=== PATIENT | male | born 1975 | race Caucasian/White ===

== ENCOUNTER 2016-11-30 21:49 | Inpatient (IN) | payer OTHER ==
--- NOTE | ~2016-11-30 | PN ---
Unit #: [id number] #: [id number] Patient: CIARAN VIGIL [id number] [facility] [address] [place] [address] [id number] MR#: [id number] NAME: CIARAN VIGIL ROOM: 31 Age: 41 Sex: M Admission Date: 12/01/2016 : 1975 Attending Physician: Kevan Weiss M.D. Admitting Physician: Kevan Weiss M.D. Primary Care Physician: Primary Care Physician Lala JACKSON PROGRESS NOTES DATE 12/02/2016 DISCUSSION Mr. Vigil is a 41-year-old white male who was seen today and chart was reviewed and case was discussed with the staff. He has been anxious, withdrawn and seclusive to himself. Meanwhile, he has been cooperative with treatment recommendations and has been taking medications and tolerating them fairly well with no reported side effects. MENTAL STATUS EXAMINATION Middle-aged white male who was casually dressed with fair personal hygiene and appears to be in no acute distress or discomfort. He was awake and alert on interaction with intact orientation. His mood was anxious with congruent affect. He denies any suicidal or homicidal ideation. His insight and judgement remains slightly impaired. TREATMENT PLAN 1. Will continue his current medications and treatment protocol. Will monitor his response to the medications and make further adjustments as needed. 2. Will continue to follow up. Dictated by... Kevan Weiss M.D. IAA/syed TD: 12/02/2016 17:41 JOB #: [id number] Unit #: [id number] #: [id number] Patient: CIARAN VIGIL PROGRESS NOTES Page 1 of 1 X Kevan Weiss MD PROGRESS NOTE
--- NOTE | ~2016-11-30 | PA ---
Unit #: [id number] #: [id number] Patient: CIARAN VIGIL [id number] [facility] [address] [place] [address] [id number] I MR#: [id number] NAME: CIARAN VIGIL ROOM: P131 Age: 41 Sex: M Admission Date: 12/01/2016 : 1975 Date of Assessment: 12/01/2016 Attending Physician: Kevan Weiss M.D. Admitting Physician: Kevan Weiss M.D. Primary Care Physician: Primary Care Physician No PSYCHIATRIC ASSESSMENT DATE OF SERVICE 12/01/2016. IDENTIFYING DATA Mr. Vigil is a 41-year-old single white male, who is a resident of [place], [place] and was self-referred to the hospital on a voluntary basis. CHIEF COMPLAINT "Increasing paranoid thoughts of people watching me." HISTORY OF PRESENT ILLNESS Mr. Vigil is a 41-year-old white male, who was brought to the hospital accompanied by his sister and upon presentation, the patient reports that he has been having increasing in his paranoid thoughts, particularly of people watching him and reports that he does not do well being around a lot of people and recently reports that he seems to be having a difficult time dealing with the loss of his mother, who 9 days ago and since then, the patient has been dealing with loss and reports he has been thinking more about taking himself out of here before dealing with his anxiety and reports that he has had history of drinking, which help him deal with stress. He does report increasing depression, anxiety, irritability, restlessness, feelings of hopelessness and helplessness, and paranoid ideations and suicidal ideations and as such, he was seen to be danger to self and others and therefore, recommendation for inpatient level of care for safety and stabilization was made and the patient was transferred to us. SUBSTANCE ABUSE HISTORY The patient reports history of alcohol, cannabis, cocaine, acid, and amphetamine abuse, though he reports that he has not had any drugs in the last several years with the exception of cannabis, which he reports that last use was 5 days ago. PAST PSYCHIATRIC HISTORY The patient has had outpatient treatment in the past. Review of the medical records indicate that currently he is not seeing a psychiatrist, and is not taking any psychotropic medications. PAST MEDICAL HISTORY The patient's medical history is significant for hypertension and coronary artery disease. Unit #: [id number] #: [id number] Patient: CIARAN VIGIL ALLERGIES No known medication allergies. PERSONAL AND SOCIAL HISTORY A 41-year-old white male, who reports that he is single and unemployed and lives by himself and has poor social support system. MENTAL STATUS EXAMINATION Middle-aged white male, who was casually dressed with fair personal hygiene, appears to be in no acute distress or discomfort. He was awake and alert on interaction with intact orientation. His mood was anxious and depressed with a congruent affect. His speech was slow and restricted in content. His thought processes were disorganized. He reports having suicidal ideations with bizarre, paranoid ideations, and delusional behavior. His insight and judgment remain significantly impaired. DIAGNOSTIC IMPRESSION Psychiatric: Major depressive disorder, recurrent, moderate, with psychosis. Medical: Hypertension, coronary artery disease. Stressors: Moderate psychosocial stressors. TREATMENT PLAN 1. The patient has presented with history of mood disorder and psychosis and has been decompensating and will need inpatient hospitalization for safety and stabilization. We will start him back on his home medications. We will adjust the medications and monitor response. 2. Supportive therapy was provided to the patient. 3. Safe, structured, and nourishing environment will be provided. ESTIMATED LENGTH OF STAY 5 to 7 days. ABILITY TO HELP SELF Limited. WILLINGNESS TO HELP SELF The patient appears to be willing to help self STRENGTHS 1. Communicative. 2. Cooperative. PROBLEMS 1. Chronic dysphoric symptoms. 2. Poor social support system. DISCHARGE CRITERIA This will be contingent upon the patient's ability to show resolution of his depression and anxiety and psychosis and his ability to stay safe to himself, particularly after discharge from the hospital. Dictated by... Sweetie Milan/nneka Unit #: [id number] #: [id number] Patient: CIARAN VIGIL TD: 12/01/2016 06:43 JOB #: [id number] PSYCHIATRIC ASSESSMENT Page 1 of 1 X Kevan Weiss MD PSYCHIATRIC ASSESSMENT
--- NOTE | ~2016-11-30 | PN ---
Unit #: [id number] #: [id number] Patient: CIARAN VIGIL [id number] [facility] [address] [place] [address] [id number] I MR#: [id number] NAME: CIARAN VIGIL ROOM: P131 Age: 41 Sex: M Admission Date: 12/01/2016 : 1975 Attending Physician: Kevan Weiss M.D. Admitting Physician: Kevan Weiss M.D. Primary Care Physician: Primary Care Physician Lala VALERIO NOTES DATE 12/03/2016 DISCUSSION Mr. Vigil is a 41-year-old white male who was seen today and chart was reviewed and case was discussed with the staff. He has been anxious, withdrawn and rather seclusive to himself. He has been cooperative with treatment recommendations and has been taking medications and tolerating them fairly well with no reported side effects. MENTAL STATUS EXAMINATION Middle-aged white male who was casually dressed with fair personal hygiene and appears to be in no acute distress or discomfort. He was awake and alert on interaction with intact orientation. His mood was anxious with congruent affect. He denies any suicidal or homicidal ideation. His insight and judgment remains slightly impaired. TREATMENT PLAN 1. We will continue his current medications and treatment protocol. Will monitor his response to the medications and make further adjustments as needed. 2. We will continue to follow up. Dictated by... Kevan Weiss M.D. IAA/dolores TD: 12/04/2016 14:54 JOB #: [id number] Unit #: [id number] #: [id number] Patient: CIARAN VIGIL CLEMENCIASIDDHARTH PROGRESS NOTES Page 1 of 1 X Kevan Weiss MD PROGRESS NOTE
--- NOTE | ~2016-11-30 | TN ---
Unit #: [id number] #: [id number] Patient: CIARAN VIGIL [id number] [facility] [address] [place] [address] [id number] I MR#: [id number] NAME: CIARAN VIGIL ROOM: P131 Age: 41 Sex: M Admission Date: 12/01/2016 : 1975 Discharge Date: 12/06/2016 Attending Physician: Kevan Weiss M.D. Primary Care Physician: Primary Care Physician No LOC TRANSFER NOTE DATE OF SERVICE 12/07/2016. HISTORY OF PRESENT ILLNESS Mr. Vigil is a 41-year-old single white male, who is a resident of [place], [place], and was stepped down to the outpatient treatment program from the adult inpatient chemical dependency and psychiatric unit, where he was hospitalized under my care from 12/01/2016 to 12/06/2016 and was initially brought to the hospital with increasing paranoia and having thoughts of people watching him and that he did not feel well being around a lot of people and recently stated that he has been having a difficult time dealing with the loss of his mother, she 9 years ago and since then the patient has been dealing with her loss and reports that he has been thinking about taking himself out before dealing with the anxiety and reported history of drinking to help with his mood. He was stabilized on a combination of Risperdal and Celexa and was medically detoxed and was stepped down to the outpatient treatment program. SUBSTANCE ABUSE HISTORY The patient reports history of alcohol, cannabis, cocaine, acid, and amphetamine abuse, and alcohol appears to be his drug of choice. He reports that he has been drinking several beers on a daily basis. PAST PSYCHIATRIC HISTORY The patient has had a history of outpatient chemical dependency treatments in the past, though currently he is not active in any treatment program, is not seeing a psychiatrist, and is not taking any psychotropic medications. PAST MEDICAL HISTORY The patient's medical history is significant for hypertension and coronary artery disease. ALLERGIES No known medication allergies. PERSONAL AND SOCIAL HISTORY A 41-year-old white male, who reports that he lives at home by himself and has fairly decent social support system. MENTAL STATUS EXAMINATION Middle-aged white male, who was casually dressed with fair personal hygiene, appears to be in no acute distress or discomfort. He was awake Unit #: [id number] #: [id number] Patient: CIARAN VIGIL and alert on interaction with intact orientation. His mood was anxious and depressed with a congruent affect. His speech was slow and goal directed. He denies any suicidal or homicidal ideations and also denies any auditory or visual hallucinations. His insight and judgment remain slightly impaired. DIAGNOSTIC IMPRESSION Psychiatric: Major depressive disorder, recurrent, moderate, without psychotic features and alcohol dependence, moderate. Medical: None. [id number] psychosocial stressors. TREATMENT PLAN 1. The patient has presented with a history of mood disorder and substance abuse. We will recommend enrolling him into the outpatient treatment program and maintaining him on his current medications. We will monitor his response and make further adjustments as needed. 2. Supportive therapy was provided to the patient. 3. Safe, structured, and nourishing environment will be provided. ESTIMATED LENGTH OF STAY 14 to 21 days. ABILITY TO HELP SELF Limited. WILLINGNESS TO HELP SELF The patient appears to be willing to help self. STRENGTHS 1. Communicative. 2. Cooperative. PROBLEMS 1. Chronic chemical dependency. 2. Chronic dysphoric symptoms. 3. Poor social support system. DISCHARGE CRITERIA This will be contingent upon the patient's ability to show resolution of his depression and anxiety and his ability to stay safe to himself, particularly after discharge from the program. Dictated by... Sweetie Milan/nneka TD: 12/08/2016 14:20 JOB #: [id number] Unit #: [id number] #: [id number] Patient: CIARAN VIGIL LOC TRANSFER NOTE Page 1 of 1 X Kevan Weiss MD X LOC TRANSFER NOTE
--- NOTE | ~2016-11-30 | PN ---
Unit #: [id number] #: [id number] Patient: CIARAN VIGIL [id number] [facility] [address] [place] [address] [id number] MR#: [id number] NAME: CIARAN VIGIL ROOM: 31 Age: 41 Sex: M Admission Date: 12/01/2016 : 1975 Attending Physician: Kevan Weiss M.D. Admitting Physician: Kevan Weiss M.D. Primary Care Physician: Primary Care Physician Lala VALERIO NOTES DATE December 04, 2016 DISCUSSION Mr. Vigil is a 41-year-old white male, who was seen today and chart was reviewed and the case was discussed with the staff. He has been anxious, withdrawn, and rather seclusive to himself. He has been cooperative with the treatment recommendations and he has been taking the medications and tolerating them fairly well with no reported side effects. MENTAL STATUS EXAMINATION Middle-aged white male, who was casually dressed with fair personal hygiene and appears to be in no acute distress or discomfort. He was awake and alert with intact orientation. His mood is anxious with a congruent affect. His speech is slow and goal-directed. He denies any suicidal or homicidal ideations, and also denies any auditory or visual hallucinations. His insight and judgment remain slightly impaired. TREATMENT PLAN 1. We will continue him on his current medications and treatment protocol, and will monitor his response to the medications, and make further adjustments as needed. 2. We will continue to followup. Dictated by... Sweetie Milan/gypsy TD: 12/05/2016 11:12 JOB #: [id number] Unit #: [id number] #: [id number] Patient: CIARAN VIGIL PROGRESS NOTES Page 1 of 1 X Kevan Weiss MD PROGRESS NOTE
--- NOTE | ~2016-11-30 | HP ---
Unit #: [id number] #: [id number] Patient: CESAR VIGIL [id number] [facility] [address] [place] [address] [id number] I MR#: [id number] NAME: CESAR VIGIL ROOM: P131 Age: 41 Sex: M Admission Date: 12/01/2016 : 1975 Attending Physician: Kevan Weiss M.D. Admitting Physician: Kevan Weiss M.D. Primary Care Physician: Primary Care Physician No HISTORY AND PHYSICAL HISTORY OF PRESENT ILLNESS Cesar is a 41 year old admitted to [address] [place] [address] reporting paranoid thoughts. PAST MEDICAL HISTORY 1. Coronary artery disease. a. Angioplasty with stents. 2. High blood pressure. 3. Hyperlipidemia. 4. History of poly-illicit substance abuse to include marijuana, cocaine and amphetamines. PAST SURGICAL HISTORY Nothing reported. ALLERGIES No known drug allergies. SOCIAL HISTORY Smokes less than 1/2 pack per day. Drinks a 12 pack of beer on a daily basis. Admits to using marijuana daily and has a history of other illicit substance abuse to include cocaine and amphetamines. FAMILY HISTORY Medically noncontributory. REVIEW OF SYSTEMS CONSTITUTIONAL: No fever or chills. HEENT: Denies any sore throat, ear pain or runny nose. CARDIOVASCULAR: Denies chest pain, irregular heart rhythm or palpitations. CHEST: Denies shortness of breath or cough. No hemoptysis. GASTROINTESTINAL: Denies nausea, vomiting, diarrhea or chronic constipation. ENDOCRINE: Denies history of increased thirst or urination. No recent significant weight loss or gain. GENITOURINARY: Denies dysuria, frequency, or hematuria. SKIN: Denies any rashes. HEMATOLOGIC: Denies history of increased bleeding or bruising. MUSCULOSKELETAL: Denies any hot, swollen joints. No generalized muscle pain. NEUROLOGIC: Denies problems with vision or speech. No frequent, severe headaches. No numbness, tingling or weakness in any extremities. Denies loss of bladder or bowel control. Unit #: [id number] #: [id number] Patient: CESAR VIGIL CURRENT MEDICATIONS 1. Aspirin 81 mg daily. 2. Zestril 5 mg daily. 3. Imdur ER 30 mg daily. 4. Lipitor 80 mg daily. 5. Celexa 20 mg q.h.s. 6. Coreg 3.125 mg b.i.d. 7. Sublingual nitroglycerin p.r.n. 8. Milk of Magnesia p.r.n. 9. Maalox p.r.n. 10. Tylenol p.r.n. 11. Risperdal 0.5 mg b.i.d. PHYSICAL EXAMINATION GENERAL: Alert, thin, in no apparent distress. VITAL SIGNS: Blood pressure 136/80, heart rate 56, respirations 16, temperature 98.6. WEIGHT: 146. HEIGHT: 5 feet 10 inches. SKIN: Warm and dry without rash or lesion. HEENT: Normocephalic. TMs not viewed. Oral and nasal passages clear. Conjunctivae clear. PERRLA. EOMs intact. NECK: Supple without lymphadenopathy or thyromegaly. HEART: Regular rate and rhythm without murmur. LUNGS: Clear. ABDOMEN: Soft, nontender. : Not done. EXTREMITIES: No evidence of cyanosis, clubbing or edema. Moves all without focal deficit. NEUROLOGICAL: Grossly within normal limits. Cranial Nerves: II: Visual bhatia are intact. III, IV AND : Extraocular movements are intact. Pupils are equal, round and reactive to light. V: Facial sensation is grossly normal. VII: Facial movements and expression are normal. VIII: Auditory acuity grossly intact. IX, X: Uvula is midline. Phonation is normal. XI: Patient shrugs shoulders and turns head normally. XII: Tongue protrudes in the midline. Sensory and Motor Function: Sensory and motor sensation is grossly normal. Motor: moves all extremities well. Coordination: Gait is normal. Deep Tendon Reflexes: Intact. IMPRESSION Psychiatric admission. RECOMMENDATIONS PSYCHIATRIC: Per psychiatrist. MEDICAL: See no contraindications to participate in facility's activities. MEDICAL PROGNOSIS Good. MEDICAL CONDITION Stable. Dictated by... Unit #: [id number] #: [id number] Patient: VIGILCESAR P.AVirginia. for Sweetie Gann/syed TD: 12/01/2016 16:35 JOB #: [id number] HISTORY AND PHYSICAL Page 1 of 1 X Rachel Fay HISTORY AND PHYSICAL
--- NOTE | ~2016-11-30 | DS ---
Unit #: [id number] #: [id number] [facility] [id number] [facility] [address] [place] [address] [id number] I MR#: [id number] NAME: CIARAN VIGIL ROOM: P131 Age: 41 Sex: M Admission Date: 12/01/2016 : 1975 Discharge Date: 12/06/2016 Attending Physician: Kevan Weiss M.D. Primary Care Physician: Primary Care Physician No DISCHARGE SUMMARY IDENTIFYING DATA Mr. Vigil is a 41-year-old single white male, who is a resident of [place], [place] and was self-referred to the hospital on a voluntary basis. DISCHARGE DIAGNOSES Psychiatric: Major depressive disorder, recurrent, moderate, with psychosis. Medical: Hypertension, coronary artery disease. Stressors: Moderate psychosocial stressors. HISTORY OF PRESENT ILLNESS Please see initial psychiatric evaluation for details. PAST PSYCHIATRIC HISTORY Please see initial psychiatric evaluation for details. PAST MEDICAL HISTORY Please see initial psychiatric evaluation for details. HOSPITAL COURSE The patient was admitted to the adult psychiatric unit at [facility] aaliyah Pride and was oriented to the hospital environment. Routine p.r.n. medications were initiated, and he was started back on his home medications and Risperdal and Celexa were initiated to help with mood and psychosis, and he was closely monitored. He was taking the medications regularly and was tolerating them fairly well and was able to show a decent therapeutic response with improvement in depression and anxiety and as such, it was decided that he will be discharged home. We will continue treatment on an outpatient basis. DISCHARGE MEDICATIONS Risperdal 0.5 mg b.i.d. for psychosis; Celexa 20 mg a day for depression; Lipitor 80 mg at bedtime for dyslipidemia; Imdur ER 30 mg a day for hypertension; Coreg 3.125 mg b.i.d. for coronary artery disease; Zestril 5 mg a day for hypertension; aspirin 81 mg a day for coronary artery disease. DISCHARGE CONDITION Stable. PROGNOSIS Fair. Unit #: [id number] #: [id number] Patient: CIARAN VIGIL Dictated by... Kevan Weiss M.D. IAA/modl TD: 12/06/2016 07:31 JOB #: [id number] DISCHARGE SUMMARY Page 1 of 1 X Kevan Weiss MD DISCHARGE SUMMARY
--- NOTE | ~2016-11-30 | PN ---
Unit #: [id number] #: [id number] Patient: CIARAN VIGIL [id number] [facility] [address] [place] [address] [id number] MR#: [id number] NAME: CIARAN VIGIL ROOM: 31 Age: 41 Sex: M Admission Date: 12/01/2016 : 1975 Attending Physician: Kevan Weiss M.D. Admitting Physician: Kevan Weiss M.D. Primary Care Physician: Primary Care Physician Lala VALERIO NOTES DATE December 05, 2016 DISCUSSION Mr. Vigil is a 41-year-old white male, who was seen today and chart was reviewed and the case was discussed with the staff. He has been anxious, withdrawn, and rather seclusive to himself. Meanwhile, he has been cooperative with the treatment recommendations, and he has been taking the medications and tolerating them fairly well with no reported side effects. MENTAL STATUS EXAMINATION Young white male, who was casually dressed with fair personal hygiene and appears to be in no acute distress or discomfort. He was awake and alert on interaction with intact orientation. His mood is anxious with a congruent affect. He denies any suicidal or homicidal ideations, and also denies any auditory or visual hallucinations. His insight and judgment remain slightly impaired. TREATMENT PLAN 1. We will continue him on his current medications and treatment protocol, and will monitor his response to the medications, and make further adjustments as needed. 2. We will continue to followup. Dictated by... Sweetie Milan/gypsy TD: 12/06/2016 05:41 JOB #: [id number] Unit #: [id number] #: [id number] Patient: CIARAN VIGIL PROGRESS NOTES Page 1 of 1 X Kevan Weiss MD PROGRESS NOTE
[2016-12-01 09:33] LABS: BASOPHIL# 0.1 X10e3 (0-0.3); BASOPHIL% 0.8 % (0-2.5); EOSINOPHIL# 0.3 X10e3 (0-0.7); EOSINOPHIL% 2.4 % (0.0-7.0); HEMATOCRIT 44.1 % (38.0-50.0); HEMOGLOBIN 14.8 gm/dL (13.0-16.0); LYMPHOCYTE# 2.3 X10e3 (1.0-3.5); LYMPHOCYTE% 21.6 % (17.0-45.0); MEAN CELL VOLUME 94.2 FL (83-96); MEAN CORPUSCULAR HEMOGLOBIN 31.6 PG (28-34); MEAN CORPUSCULAR HGB CONC 33.6 g/dL (30-36); MEAN PLATELET VOLUME 9.9 FL (6.5-11.5); MONOCYTE# 0.8 X10e3 (0-1.0); MONOCYTE% 7.2 % (3.0-12.0); NEUTROPHIL# 7.3 X10e3 (1.5-7.1); PLATELET COUNT 198 X10e3 (140-420); RED BLOOD COUNT 4.68 X10e (3.90-5.60); RED CELL DISTRIBUTION WIDTH 13.2 % (11.0-15.5); WHITE BLOOD COUNT 10.8 X10e3 (4.0-10.5)
[2016-12-01 09:43] LABS: DIFF IND NO
[2016-12-01 12:50] LABS: ALBUMIN SERUM 4.2 g/dL (3.5-5.0); BILIRUBIN,TOTAL 0.4 mg/dL (0.2-2.0); BUN/CREATININE RATIO 8.75; CALCIUM SERUM 9.6 mg/dL (8.4-10.2); CREATININE SERUM 0.8 mg/dL (0.6-1.4); GLOM FILT RATE Estimated 110.2 mL/min (>60); POTASSIUM 4.2 mmol/L (3.5-5.1)
[2016-12-05 12:53] LABS: URINE APPEARANCE CLEAR; URINE BILIRUBIN NEG (NEG); URINE BLOOD 1+ (NEG); URINE COLOR YELLOW; URINE GLUCOSE NEG (NEG); URINE KETONE NEG (NEG); URINE LEUKOCYTE ESTERASE NEG (NEG); URINE NITRATE NEG (NEG); URINE PROTEIN NEG (NEG); URINE UROBILINOGEN 0.2 MG/DL (NEG)
[2016-12-05 12:56] LABS: URINE BACTERIA AUWI NEG (NEGATIVE); URINE SQUAMOUS EPITHELIAL CELL NONE SEEN /[HPF]; UWBCS1 AUWI 0-2 (0-5)
[2016-12-05 13:27] LABS: AMPHETAMINE NEG (NEG); BARBITURATES NEG (NEG); BENZODIAZEPINES NEG (NEG); COCAINE NEG (NEG); MARIJUANA POS (NEG); OPIATES NEG (NEG); TRICYCLIC ANTIDEPRESSANTS NEG (NEG); U METHADONE NEG (NEG)
== END 2016-12-06 11:55 | disposition home or self-care (01) | DRG 885 ==
LOC: P1S 12-01 02:34
PROVIDERS: Psychiatry & Neurology Psychiatry
DX: F33.3 Major depressive disorder, recurrent, severe with psychotic symptoms (principal); F17.210 Nicotine dependence, cigarettes, uncomplicated; I25.10 Atherosclerotic heart disease of native coronary artery without angina pectoris; Z95.5 Presence of coronary angioplasty implant and graft
CPT/HCPCS: 80053; 80307; 81003; 85025